=== PATIENT | female | born 1995 | race Caucasian/White ===

== ENCOUNTER → 2021-11-24 11:33 | Outpatient (ROUT) | payer BC, OTHER, SELFPAY | PROVIDERS: Visit Provider Nurse Practitioner Obstetrics & Gynecology | DX: Z34.90 Encounter for supervision of normal pregnancy, unspecified, unspecified trimester (principal); Z36.85 Encounter for antenatal screening for Streptococcus B; Z3A.36 36 weeks gestation of pregnancy | CPT/HCPCS: 87081 ==

== ENCOUNTER 2021-12-28 15:02 | Inpatient (IN) | payer BC, OTHER, MEDICAID, SELFPAY ==
[2021-12-28] MEDS: LACTATED RINGERS 1,000 ML 100 ML IV ×2 (16:15→17:44)
[2021-12-28 16:21] LABS: COVID19 -Nasal RAPID Negative (Negative)
[2021-12-28 16:55] LABS: Add Manual Diff / Slide Review NO; Basophils Absolute Auto 0 /uL (0-100); Basophils Percent Auto 0.3 % (0-2); Eosinophils Absolute Auto 100 /uL (0-450); Eosinophils Percent Auto 0.7 % (2-4); Hematocrit 38.1 % (36-46); Hemoglobin 12.7 g/dL (12.0-16.0); Lymphocytes Absolute Auto 2100 /uL (1100-4500); Lymphocytes Percent Auto 13.3 % (25-40); Mean Corpuscular HGB Conc 33.5 % (30-36); Mean Corpuscular Hemoglobin 27.2 PG (26-34); Mean Corpuscular Volume 81.3 fL (80-100); Monocytes Absolute Auto 900 /uL (0-900); Monocytes Percent Auto 5.9 % (3-14); Neutrophils Absolute Auto 12600 /uL (1500-7000); Neutrophils Percent Auto 79.8 % (50-75); Platelet Count 297 X10^3/uL (150-400); Red Blood Cell Count 4.68 X10^6/uL (4.0-5.2); Red Cell Distribution Width 14.7 % (11.6-14.8); White Blood Cell Count 15.8 X10^3/uL (4.5-11.0)
[2021-12-28 17:02] LABS: Aspartate Aminotransferase 58 IU/L (14-36); BUN Creatinine Ratio 11.3 (6-22); Blood Urea Nitrogen 7 mg/dL (7-17); Estimated Glomerular Filt Rate > 60 mL/min (>60); Uric Acid 4.9 mg/dL (2.5-6.2)
--- NOTE | 2021-12-28 17:10 | P.HPOB_ITS ---
OB HPI Date/Time Date of admission: 12/28/21 Date Patient Seen: 12/28/21 Time Patient Seen: 15:00 History of Present Condition Chief complaint: : 1 Para: 0 Estimated Date of Delivery: 12/17/21 Estimated Gestational Age (weeks): 41.4 Narrative: Cecelia Ochoa is a 26 year old female @ [id number] by early ultrasound who presents for labor evaluation. Contractions started around 0800 this morning and have increased in intensity and frequency throughout the day. She has not had any vaginal bleeding or loss of fluid. She has been feeling good movement. She was seen in clinic at 1415 at which time her cervical exam was 5 cm/80%/-2. She was having to breathe through contractions and was recommended to be admitted. She has had an uncomplicated course of care with the exception of blood pressures trending up in the third trimester (130s/80s). Her blood pressure in the clinic today was 143/89. She arrives with her mother and partner, Neo. She desires an epidural but would like to wait until her contractions become more intense. VS: BP 131/84, HR 111 bpm, T 36.8 C History of Present care: good care, initiated at week # (7), number of visits (11) and pounds weight gain (58) Dating criteria: based on 1st trimester US only Ultrasounds: normal 1st trimester US and normal mid trimester US Obstetrical complications: none Medical complications: none Preadmission Labs Blood type: A (+) positive -: Antibody screen: negative, GBS status: negative, HBsAG: negative, HIV: negative and RPR/VDLR: negative -: Chlamydia screen: not detected and Gonorrhea screen: not detected -: Rubella: not immune and Varicella: immune HCT: 37.5 HCAB: negative PAP: Normal 1 hr GTT: 105 Evaluation Evaluation Baseline heart rate: 150 Variability: Moderate (11-25) Monitor Decelerations: Variable Contraction Frequency (minutes): 3 Status: Category ll Dilation (cm): 5 Effacement (%): 80 Dilation: >/=5 cm Effacement: >/=80% station: -2 [facility] Medical History (Updated 12/28/21 @ 17:46 by Jocelyn Dill CNM) Anxiety Depression Oligomenorrhea Family History (Updated 12/28/21 @ 17:46 by Jocelyn Dill CNM) Mother Hypertension Depression Social History (Updated 12/28/21 @ 17:48 by Jocelyn Dill CNM) marital status: unmarried,living together household members: significant other lives independently: Yes occupational status: employed Smoking Status: Former smoker alcohol intake: former Meds Home Medications and Allergies Allergies Allergy/AdvReac Type Severity Reaction Status Date / Time No Known Drug Allergies Allergy Unverified 12/28/21 17:52 Review of Systems Review of Systems ROS: Yes All systems reviewed with the patient and are negative except as otherwise documented OB Exam Resp Effort & Inspection: normal respiratory effort Auscultation: clear to auscultation bilaterally Presentation: vertex Objective Labs Result Diagrams: 12/28/21 16:15 12/28/21 16:15 Labs: Laboratory Results - last 24 hr 12/28/21 12/28/21 12/28/21 15:36 16:15 16:15 WBC Cancelled 15.8 H RBC Cancelled 4.68 Hgb Cancelled 12.7 Hct Cancelled 38.1 MCV Cancelled 81.3 MCH Cancelled 27.2 MCHC Cancelled 33.5 RDW Cancelled 14.7 Plt Count Cancelled 297 Neut % (Auto) Cancelled 79.8 H Lymph % (Auto) Cancelled 13.3 L Phillips % (Auto) Cancelled 5.9 Eos % (Auto) Cancelled 0.7 L Baso % (Auto) Cancelled 0.3 Neut # (Auto) Cancelled 89629 H Lymph # (Auto) Cancelled 2100 Phillips # (Auto) Cancelled 900 Eos # (Auto) Cancelled 100 Baso # (Auto) Cancelled 0 BUN Creatinine Estimated GFR BUN/Creatinine Ratio Uric Acid AST SARS-CoV-2 (PCR) Negative 12/28/21 16:15 WBC RBC Hgb Hct MCV MCH MCHC RDW Plt Count Neut % (Auto) Lymph % (Auto) Phillips % (Auto) Eos % (Auto) Baso % (Auto) Neut # (Auto) Lymph # (Auto) Phillips # (Auto) Eos # (Auto) Baso # (Auto) BUN 7 Creatinine 0.62 Estimated GFR > 60 BUN/Creatinine Ratio 11.3 Uric Acid 4.9 AST 58 H SARS-CoV-2 (PCR) Assessment and Plan Assessment and Plan Assessment and Plan narrative: Assessment: [place] at 41.4wks Active labor Category II FHR No indication for GBS prophylaxis Elevated blood pressure without diagnosis of gestational hypertension Plan: Routine orders with preeclampsia panel Epidural for pain management when requested Labor support PRN Reassess in 4 hours or sooner, PRN
--- NOTE | 2021-12-28 18:23 | PM.OBPNLAB ---
Date/Time Date Patient Seen: 12/28/21 Time Patient Seen: 16:45 Pain Control Comments: CNM called to room at 1632 for: 1627, prolonged deceleration to 75 bpm noted lasting approximately five minutes. During this time RN's repositioned patient to left side lying without resolution and Dr. Anand (provider on the unit) was called to the room. The patient was then repositioned to hands and knees and started on O2. Vaginal exam was performed by Dr. Anand at that time and she was 5 cm/80%/-2. Deceleration resolved with hands and knees. CNM arrived just following resolution of deceleration. FHR returned to a baseline of 140 bpm with moderate variability but inconsistent tracing. At 1712, second deceleration to 60 bpm, not prolonged, was noted and at 1715 FSE was placed without ROM. Pelvic Exam Dilation (cm): 5 Effacement (%): 80 station: -2 Comments: performed by Dr. Anand Contractions Pitocin rate (mU/min): 0 Contraction frequency (min): 3 Contraction duration (min): 1 Status status: Category ll Heart Rate Baseline: 160 Monitor Accelerations: Absent Monitor Decelerations: Absent Monitor Variability: Moderate Comments: following FSE placement Assessment and Plan Assessment: active labor Comments: Will continue to monitor closely. Reassess in 2-4 hours or sooner, PRN.
[2021-12-28 18:27] VITALS: BP 137/82
--- NOTE | 2021-12-28 19:16 | PM.AN.REGBLK ---
Regional Block Pre-procedure Attending OB provider: Jocelyn Dill PMH/ROS narrative: term labor, no complications ASA Class: II Labs: Hct 38.1 % (36-46) 12/28/21 16:15 Hct Cancelled 12/28/21 16:15 Plt Count 297 X10^3/uL (150-400) 12/28/21 16:15 Plt Count Cancelled 12/28/21 16:15 Medications: Current Medications Generic Name Dose Route Start Last Admin Trade Name Freq PRN Reason Stop Dose Admin Calcium Carbonate 1,000 mg 12/28/21 17:07 Calcium Carbonate 500 Mg Tab PO Q2HR PRN Dyspepsia Carboprost Tromethamine 250 mcg 12/28/21 17:07 Carboprost 250 Mcg/Ml Ampul IM Q90M PRN Bleeding Fentanyl 100 mcg 12/28/21 17:07 Fentanyl 100 Mcg/2 Ml Inj IV Q1H PRN Pain, Severe (7-10) Lactated Ringer's 1,000 mls @ 100 mls/hr 12/28/21 17:15 12/28/21 17:44 Lactated Ringers IV 100 mls/hr CONT CHIQUITA Administration Oxytocin/Lactated Ringer's 30 unit in 500 mls @ 200 mls/hr 12/28/21 17:07 Oxytocin Premix IV CONT PRN Bleeding Protocol Tranexamic Acid 1,000 mg/ 100 mls @ 200 mls/hr 12/28/21 17:07 Sodium Chloride IV NOW PRN Bleeding Oxytocin/Lactated Ringer's 30 unit in 500 mls @ 3 mls/hr 12/28/21 17:15 Oxytocin Premix IV TITRATE CHIQUITA Protocol 3 MILLIUNIT/MIN Methylergonovine Maleate 0.2 mg 12/28/21 17:07 Methylergonovine 0.2 Mg Tablet PO Q6HR PRN Heavy Bleeding Methylergonovine Maleate 0.2 mg 12/28/21 17:07 Methylergonovine 0.2 Mg/Ml Vial IM NOW PRN Bleeding Misoprostol 800 mcg 12/28/21 17:07 Misoprostol 200 Mcg Tablet MD NOW PRN Bleeding Misoprostol 1,000 mcg 12/28/21 17:07 Misoprostol 200 Mcg Tablet MD NOW PRN Bleeding Misoprostol 400 mcg 12/28/21 17:07 Misoprostol 200 Mcg Tablet SL NOW PRN Bleeding Naloxone HCl 0.2 mg 12/28/21 17:07 Naloxone 0.4 Mg/Ml Vial IV Q2MIN PRN Opiate Reversal Ondansetron HCl 4 mg 12/28/21 17:07 Ondansetron 4 Mg/2 Ml Inj IV Q4HR PRN Nausea And Vomiting Oxytocin 10 unit 12/28/21 17:07 Oxytocin 10 Unit/Ml Vial IM NOW PRN Bleeding Allergies: Allergies Allergy/AdvReac Type Severity Reaction Status Date / Time No Known Drug Allergies Allergy Unverified 12/28/21 17:52 Procedure Insertion date: 12/28/21 Insertion time: 19:30 Prep/Local: betadine x3 and 1% lidocaine Interspace: L3-4 Patient position: sitting Needle: 18 gauge Hustead Loss of resistance with: saline BRENDA at (cm): 6 Catheter placed at SKIN (cm): 12 Catheter in SPACE (cm): 6 Insertion: No CSF, No Blood, No Paresthesia with insertion, No Paresthesia with injection and No Test dose reaction Initial Medications TEST DOSE time: 19:33 TEST DOSE: 1.5% lidocaine with epinephrine 1:200k (mL): 3 BOLUS DOSE time: 19:50 BOLUS DOSE (mL): 5 BOLUS DOSE med: other (infusate) Infusion INFUSION: 0.125% bupivacaine and with fentanyl 2 mcg/mL Initial rate (mL/hr): 6 Subsequent interventions: To OR, lidocaine 2%, 10mL Post-procedure Anesthesia time START: 19:23 Anesthesia time END: 21:36 Post-procedure Anesthesia Assessment: Yes CV function: HR/BP stable, Yes Resp function: RR/sat/airway adequate, Yes Mental status appropriate and No Anesthesia complications
--- NOTE | 2021-12-28 21:00 | P.PNOB_ITS ---
Date/Time Date Patient Seen: 12/28/21 Time Patient Seen: 20:15 Pain Control Pain control: epidural Pelvic Exam Dilation (cm): 6 Effacement (%): 80 station: -2 Amniotic membrane status: Leaking Contractions Contractions on admission: regular Monitor mode: External Pitocin rate (mU/min): 0 Contraction frequency (min): 3 Status status: Category ll Heart Rate Baseline: 135 Comments: prolonged deceleration lasting 7 minutes with stephanie to 60's. Intrauterine resuscitation: O2, IVFB, side to side then hands and knees. Terbutaline was ordered but FHR recovered prior to administration so it was held. Assessment and Plan Assessment: active labor and other ( intolerance of labor) Plan: Comments: was consulted for primary . Dr. Whittaker and supervisor parking lot notified to call in OR crew. Dr. Oswald, head housekeeper was already on unit and was notified.
--- NOTE | 2021-12-28 21:18 | P.OP.PRE_ITS ---
Pre-operative Note COVID-19 COVID-19 status: Negative Result date/Date tested (Pos, Neg/Pending): 12/28/21 Criteria for continued procedure: Deterioration of the patient's condition or overall health Interval Note History & Physical reviewed/Exam performed by Physician: Yes Changes to H&P: No H&P completed within 30 days and has changed as indicated here:: No changes to maternal history and physical. heart rate pattern category 2, nonreassuring remote from delivery. C- section recommended and patient consented to for delivery.
--- NOTE | 2021-12-28 21:20 | P.CONS_ITS ---
History of Present Illness Consult details Date Patient Seen: 12/28/21 Time Patient Seen: 08:50 Chief complaint: Reason for consult: intolerance of labor, Cat 2 EFM, remote from delivery Requesting provider: Vonda Castellano Narrative: Consult from Jocelyn Dill CNM for primary C section for intolerance of labor 26 year old female @ [id number] by early ultrasound who was admitted to [facility] in apparent labor, after presenting to the office with uncomfortable contractions office cervical exam 5 cm/80%. She had no rupture membranes and no vaginal bleeding. She had been feeling good movement. Her care has been uncomplicated except note of trending up BPs 130s/80s in 3rd trimester. BP in the clinic today was 143/89 but she reportedly was uncomfortable, breathing with contractions. Initial BP's in [facility] where than normal. Now with patient anxious with heart rate decelerations and consenting for , she has had some mildly elevated BP's again. Preeclamptic labs have been sent which showed a mildly elevated AST, normal p latelets. Urine protein creatinine ratio is pending off the Hagan. Patient was admitted in labor. She received an epidural for anesthesia. She progressed from 5 cm to 6 cm. heart rate had prolonged deceleration lasting 7 minutes with stephanie to 60's.? Intrauterine resuscitation: O2, IVFB, s bandar to side then hands and knees wit recovery of FHts. FHR with subsequent decreased variability and tachycardia with recovery phase, now return to baseline. FHR has demonstrated some intermittent late decelerations and episodic repeat severe decelerations. Meds Home Medications and Allergies Allergies Allergy/AdvReac Type Severity Reaction Status Date / Time No Known Drug Allergies Allergy Unverified 12/28/21 17:52 Exam Vital Signs (past 8 hours): - 12/28/21 18:27 Blood Pressure 137/82 Objective Labs Result Diagrams: 12/28/21 16:15 12/28/21 16:15 Labs: Laboratory Results - last 24 hr 12/28/21 12/28/21 12/28/21 15:36 16:15 16:15 WBC Cancelled RBC Cancelled Hgb Cancelled Hct Cancelled MCV Cancelled MCH Cancelled MCHC Cancelled RDW Cancelled Plt Count Cancelled Neut % (Auto) Cancelled Lymph % (Auto) Cancelled [place] % (Auto) Cancelled Eos % (Auto) Cancelled Baso % (Auto) Cancelled Neut # (Auto) Cancelled Lymph # (Auto) Cancelled [place] # (Auto) Cancelled Eos # (Auto) Cancelled Baso # (Auto) Cancelled BUN Creatinine Estimated GFR BUN/Creatinine Ratio Uric Acid AST SARS-CoV-2 (PCR) Negative Blood Type A Positive Antibody Screen Negative 12/28/21 12/28/21 16:15 16:15 WBC 15.8 H RBC 4.68 Hgb 12.7 Hct 38.1 MCV 81.3 MCH 27.2 MCHC 33.5 RDW 14.7 Plt Count 297 Neut % (Auto) 79.8 H Lymph % (Auto) 13.3 L [place] % (Auto) 5.9 Eos % (Auto) 0.7 L Baso % (Auto) 0.3 Neut # (Auto) 04043 H Lymph # (Auto) 2100 [place] # (Auto) 900 Eos # (Auto) 100 Baso # (Auto) 0 BUN 7 Creatinine 0.62 Estimated GFR > 60 BUN/Creatinine Ratio 11.3 Uric Acid 4.9 AST 58 H SARS-CoV-2 (PCR) Blood Type Antibody Screen [facility] Medical History Anxiety Depression Oligomenorrhea Family History (Updated 12/28/21 @ 17:46 by Jocelyn Dill CNM) Mother Hypertension Depression Social History marital status: unmarried,living together household members: significant other lives independently: Yes occupational status: employed Tobacco & Substance Use Smoking Status: Former smoker alcohol intake: former Assessment & Plan Assessment & Plan narrative: at 6 cm with significant category to heart rate pattern, remote from delivery. I met with the patient and discussed that I agree with the recommendation for section for delivery since baby's heart rate is having significant decelerations and she is not close to a vaginal delivery, recommended expedited delivery with section. The patient agreed to section. I discussed the procedure. I discussed small risk of bleeding, infection, injury to adjacent organs including bowel, bladder and ureters. I discussed small risk of injury to the baby. She confirmed that if she did have heavy bleeding that was life threatening and was not a week to discuss, that she would desire a blood transfusion if felt to be warranted. Verbal and written consent obtained for the . Will observe patient BP's after delivery and await urine/protein creatinine ratio. Patient has had no preeclamptic symptoms. Phone call to me for consult at 8:34 p.m with information given to me, I agreed with and advised Manda Holden CNM and to go ahead and call in OR crew for urgent . Pt seen and consent signed at 0855. Pt with epidural in place. Hagan catheter has been placed in SCDs are on. Or crew arrived, set up and about to bring pt to OR. COVID-19 COVID-19 status: Negative Result date/Date tested (Pos, Neg/Pending): 12/28/21 Time Spent With Patient Critical Care time: I spent a total of [] minutes of critical care time on this patient's care today; this time is exclusive of procedural time.
[2021-12-28 21:42] LABS: Protein (Total) Urine Random 16 mg/dL (0-12); Protein Creatinine Ratio Urine 0.13 GRAM/24H
[2021-12-28] MEDS: CEFAZOLIN 2 GM IN 0.9 % NACL 100 ML IV (21:43)
[2021-12-28] MEDS: AZITHROMYCIN 500 MG in DEXTROSE 5% IN WATER 250 ML 250 MG IV (21:49)
--- NOTE | 2021-12-28 22:02 | SUR.OPER ---
Supine on Padded OR bed, head on pillow, safety belt at thigh, arms secured on padded arm boards at <90 degrees abduction. Bump under right buttock. Legs uncrossed with pillow under knees, gel pad to heels, tape over blanket to lower legs. Gel pad placed between patients posterior upper leg and urinary catheter tubing.
--- NOTE | 2021-12-28 22:12 | SUR.OPER ---
Viable baby girl delivered at 2205. Placenta and cord blood tubes X2 given to L&D RN.
[2021-12-28] MEDS: ACETAMINOPHEN IV 1,000 MG/100 ML VIAL 400 MG IV (22:19)
[2021-12-28 22:40] VITALS: BP 120/74; PULSE 93; RESP 16; O2SAT 100
--- NOTE | 2021-12-28 23:09 | PM.PROC.1 ---
Procedures Date/Time Date of procedure: 12/28/21 Time of procedure: 22:05 General Procedure description: Commissary Assistant Documentation I assisted the OB information technology internship in the section for this patient. My responsibilities included retracting and suctioning, providing fundal pressure during delivery and following with suture during closure. Please see the OB's note for details of the surgery.
[2021-12-28 23:30] VITALS: BP 117/69; PULSE 91; RESP 15; TEMP 36.4; O2SAT 100
[2021-12-28 23:35] VITALS: BP 124/71; PULSE 87; RESP 16; O2SAT 100
[2021-12-28 23:45] VITALS: BP 115/71; PULSE 88; RESP 16; O2SAT 100
--- NOTE | 2021-12-28 23:45 | P.OP_ITS ---
Operative Date/Time/Diagnoses Date of procedure: 12/28/21 Time of procedure: 22:30 Pre-op diagnosis: 41 week , intolerance of labor Post-op diagnosis: same Procedure & Clinicians Procedure: Primary lower transverse section Same procedure as scheduled: Yes Indications: 41 week , intolerance of labor in the active phase. Surgeon: Vonda Castellano Net Sql Developer: Jocelyn Dill Anesthesia Type: Epidural Operative Notes Findings: Double body cord over shoulders. Thick meconium fluid. Baby girl delivered with Apgars of 8 and 9. Normal uterus and ovaries Closure Type: primary Specimen(s): other (Cord blood) Estimated Blood Loss (mL): 500 Blood products transfused: none Procedure in detail: IV fluids: 800 ml crystalloid Urine output: 200 ml Description of procedure: She was transferred from the center to the operating room. She had an epidural for labor and her epidural was bolused. Hagan catheter had previously been placed in the birthing center. She was placed in the supine position and was prepped and draped in routine sterile fashion. The anesthesia level was tested and noted to be adequate. A Pfannenstiel skin incision was made in the lower abdomen and carried down to the level of the fascia. The fascia was incised in the midline and was bluntly extended transversely. The superior and inferior edges of the fascia were elevated and dissected off the rectus muscles with sharp and blunt dissection. The muscles were bluntly split in the midline. The parietal peritoneum was elevated, incised and extended bluntly. The bladder blade was placed. The visceral peritoneum was elevated off the lower uterus, incised and the bladder flap was bluntly created. The bladder blade retractor was placed. A transverse incision was made in the lower uterus and the incision was extended transversely with blunt dissection. Thick meconium fluid was noted. There was umbilical cord loops visible lying over the level of the baby's neck. The head was mildly wedged in the pelvis, was elevated to the uterine incision and delivered through the incision with some minimal fundal pressure. Infant was in the OP position. Anterior shoulder delivered gradually with fundal pressure. After delivery of the anterior shoulder, the posterior shoulder was somewhat tight and did not deliver. body rotated to chest up, and then attempt to deliver the arm that had been anterior, but snug fit in uterus and arm not delivered. Infant rotated back and with fundal pressure and continued gradual traction, posterior arm did now deliver. 's body then delivered without difficulty. Infant had an initial minimal cry but then no further cry and had poor tone. Cord was thus clamped and cut and the infant was handed off to the casting machine operator who was present for delivery. A segment of cord was clamped and cut, and cord gases were obtained, but not sent since infant's subsequent Apgars were 8 and 9. Routine cord blood was obtained for blood typing specimen. The placenta was m anually removed. It appeared intact with a normal three-vessel cord. The uterus was exteriorized out of the uterine incision. The uterus was swept clean of clots and much adherent membranes. On inspection of the uterine incision, there was a transverse extension on her right side exposing, extending superficially just past what appeared to be a branch of a uterine vessel, which was not interrupted, but superficially the myometrium extended past it. On palpation no pulsation was noted so it may be a vein verses branch of the uterine artery by appearance. The uterus was closed in 2 layers with 0 Vicryl. With starting closure of the 1st layer, with anchoring the angle, this suture was passed around the vessel to ligate it. The 1st uterine layer was then closed in running locking continuous fashion followed by a 2nd layer placed in a vertical imbricating type fashion. Hemostasis was noted along the uterine incision. The tubes and ovaries were inspected and noted to be normal. Posterior to the uterus was suctioned of some blood and fluid. The uterus was placed back into the maternal abdomen. The paracolic gutters were inspected and wiped of some minimal blood and fluid. The anterior cul-de-sac was inspected and some clot was removed. The uterine incision was re- inspected and good hemostasis was noted. The pelvis was irrigated. Repeat inspection showed some bleeding along the right bladder flap edge. The bladder flap peritoneum was reapproximated with 3-0 Vicryl, with compressing the area of light bleeding and hemostasis obtained. Repeat inspection of the abdomen reveal continued hemostasis. The abdomen was closed. The muscles were reapproximated with 2 interrupted sutures of 0 Vicryl. The fascia was closed with running continuous suture of 0 Vicryl. The skin was closed with a subcuticular suture of 4-0 Monocryl. Steri-Strips and sterile Aquacel dressing was placed. She tolerated the procedure well and went to the recovery room in stable condition. Complications: none Post-operative Condition: stable Disposition: PACU Plan for aftercare: transferred to floor for routine post care
[2021-12-28] MEDS: KETOROLAC 30 MG/ML VIAL IV (23:49)
[2021-12-28 23:50] VITALS: BP 113/66; PULSE 87; RESP 15; O2SAT 100
--- NOTE | 2021-12-29 00:05 | SUR.PHASEI ---
Pt in recovery from [id number], VSS, denied any distress, and ready to transfer to room. Report given to receiving RN. Pt transferred to room with this RN assistance bedside handoff complete including fundus check. Transfer of care now complete.
[2021-12-29] MEDS: ACETAMINOPHEN 325 MG TABLET 650 MG PO ×2 (02:49→19:08)
[2021-12-29] MEDS: KETOROLAC 30 MG/ML VIAL IV (06:26)
[2021-12-29] MEDS: DOCUSATE 100 MG CAPSULE 200 MG PO (09:07)
[2021-12-29 13:51] LABS: Add Manual Diff / Slide Review NO; Basophils Absolute Auto 0 /uL (0-100); Basophils Percent Auto 0.3 % (0-2); Eosinophils Absolute Auto 100 /uL (0-450); Eosinophils Percent Auto 0.7 % (2-4); Hemoglobin 10.8 g/dL (12.0-16.0); Lymphocytes Absolute Auto 1800 /uL (1100-4500); Lymphocytes Percent Auto 11.9 % (25-40); Mean Corpuscular HGB Conc 33.7 % (30-36); Mean Corpuscular Hemoglobin 27.4 PG (26-34); Mean Corpuscular Volume 81.4 fL (80-100); Monocytes Absolute Auto 1200 /uL (0-900); Monocytes Percent Auto 7.8 % (3-14); Neutrophils Absolute Auto 12100 /uL (1500-7000); Neutrophils Percent Auto 79.3 % (50-75); Platelet Count 249 X10^3/uL (150-400); Red Blood Cell Count 3.93 X10^6/uL (4.0-5.2); Red Cell Distribution Width 15.1 % (11.6-14.8); White Blood Cell Count 15.2 X10^3/uL (4.5-11.0)
--- NOTE | 2021-12-29 18:08 | P.PNOB_ITS ---
Subjective - OB Subjective Patient comments: no complaints, pain well controlled and tolerating diet baby status: doing well and nursing well feeding status: exclusively breast feeding Narrative: Patient fatigued, otherwise she reports doing well. Hagan still in place. Date Patient Seen: 12/29/21 Time Patient Seen: 08:20 Exam Vital Signs (past 8 hours): Oxygen Delivery Method Room Air Temp Narrative Exam Narrative: General: ?Well-appearing female Abdomen: ?Soft, nontender, nondistended. ?Dressing dry. Fundus @U, firm, nontender Extremities: ?Trace pedal edema Objective Labs Result Diagrams: 12/29/21 13:48 12/28/21 16:15 Labs: Laboratory Results - last 24 hr 12/28/21 12/29/21 21:24 13:48 WBC 15.2 H RBC 3.93 L Hgb 10.8 L Hct 32.0 L MCV 81.4 MCH 27.4 MCHC 33.7 RDW 15.1 H Plt Count 249 Neut % (Auto) 79.3 H Lymph % (Auto) 11.9 L Gaines % (Auto) 7.8 Eos % (Auto) 0.7 L Baso % (Auto) 0.3 Neut # (Auto) 18033 H Lymph # (Auto) 1800 Gaines # (Auto) 1200 H Eos # (Auto) 100 Baso # (Auto) 0 U Random Total Protein 16 H Urine Creatinine 119.0 Protein/Creatinin Ratio 0.13 Assessment & Plan Plan day: 1 plan OB: routine postop care Comments: Discuss Hagan to be discontinued later that morning, early afternoon and would then observe for urination. Since my visit Hagan has been discontinued and patient voided without difficulty. Increase ambulation today. Urine protein/creatinine ratio 0.13. Her BP's have been normal since delivery. No signs of preeclampsia and doubt gestational hypertension, BP was only elevated when she was uncomfortable with contractions and anxious prior to the . I reviewed findings at the , baby was in OP position, discussed. Discussed loops of cord over the baby's neck/shoulder upon entry into the uterus, the apparent cause of the severe deceleration since preoperatively. Per questions, reassured her nothing seen to prevent her from carrying another preg tania. Choice with next would be trial of labor after versus repeat and her provider would review risks and benefits of each with the future . Time Spent With Patient Time: Total time spent is greater than 50% in coordination of care (as documented) at patient's floor/unit and/or counseling patient: Time with patient: less than 15 minutes
[2021-12-29] MEDS: OXYCODONE IR 5 MG TABLET PO (19:08)
[2021-12-30] MEDS: ACETAMINOPHEN 325 MG TABLET 650 MG PO ×3 (01:37→17:18)
[2021-12-30] MEDS: OXYCODONE IR 10 MG TABLET PO ×2 (01:41→10:56)
[2021-12-30] MEDS: DOCUSATE 100 MG CAPSULE 200 MG PO (10:56)
--- NOTE | 2021-12-30 11:08 | PM.DS.1 ---
History of Present Illness History of Present Illness Date Patient Seen: 12/30/21 Time Patient Seen: 10:00 Chief complaint: MATERNITY Narrative: 26 year old female @ [id number] by early ultrasound admitted to [facility] in labor, after presenting to the office with uncomfortable contractions office cervical exam 5 cm/80%.? She had no rupture membranes and no vaginal bleeding.? She had been feeling good movement. Her care has been uncomplicated except note of trending up BPs 130s/80s in 3rd trimester.? BP in the clinic the day of admission was 143/89 but she reportedly was uncomfortable, breathing with contractions.? Initial BP's on presentation in [facility] were then normal.?Preeclamptic labs have been sent which showed a mildly elevated AST, normal platelets.? Urine protein creatinine ratio was normal ? Discharge Providers Provider Date of admission: 12/28/21 15:02 Discharge Date: 12/30/21 Consults: 12/28/21 23:52 Consult to [facility] Routine Comment: Discharge provider: Vonda Castellano MD Summary Hospital Course Discharge Diagnosis: ? Hospital Course: She was admitted in labor.? She received an epidural for anesthesia.? She progressed from 5 cm to 6 cm.? heart rate then had prolonged deceleration lasting 7 minutes with stephanie to 60's.? Intrauterine resuscitation: O2, IVFB, side to side then hands and knees wit recovery of FHts. FHR pattern with subsequent decreased variability and tachycardia with recovery phase after the deceleration but then returned to normal basleine, moderate variability.? However FHR continued to have some intermitten decelerations, late decelerations and episodic repeat severe decelerations. Since she was remote from delivery, being a nulliparous patient, section was recommended due to intolerance to labor. She underwent primary section without complications. Baby girl delivered with Apgars of 8 and 9. Weight 6#6 oz, 2908gm. There were loops of cord noted over baby's neck and shoulder upon entry for . Baby was also noted to be in the OP position. Patient has had a normal postoperative course, meeting postoperative parameters. She is passing flatus today and is feeling well. Incisional discomfort is controlled with the oxycodone. She is ready for discharge and is being discharged on postoperative day 2. Awaiting results of baby's bilirubin to see if baby ready for discharge or needs to stay an additional day. Baby otherwise has done well. If baby stays in mother will stay as a boarder in the room. Status at Discharge Cognitive/behavioral status at discharge: oriented Functional status at discharge: independent ambulation Overall status at discharge: patient is progressing back to baseline Time Spent with Patient Time spent: Less than 30 minutes Exam Vital Signs (past 8 hours): Oxygen Delivery Method Room Air Vital signs: Temp 97.4F BP 105/60 Pulse 90 RR 14 Narrative Exam Narrative: General: ?Well-appearing female Abdomen: ?Soft, nondistended, nontender, except expected mild tenderness near the dressing. Dressing C/D/I. No erythema above the dressing. ?Fundus@umbilicus, firm, nontender Extremities: ?Trace pedal edema Objective Labs Result Diagrams: 12/29/21 13:48 12/28/21 16:15 Labs: Laboratory Results - last 24 hr 12/29/21 13:48 WBC 15.2 H RBC 3.93 L Hgb 10.8 L Hct 32.0 L MCV 81.4 MCH 27.4 MCHC 33.7 RDW 15.1 H Plt Count 249 Neut % (Auto) 79.3 H Lymph % (Auto) 11.9 L [place] % (Auto) 7.8 Eos % (Auto) 0.7 L Baso % (Auto) 0.3 Neut # (Auto) 16767 H Lymph # (Auto) 1800 [place] # (Auto) 1200 H Eos # (Auto) 100 Baso # (Auto) 0 PFSH Medical History Anxiety Depression Oligomenorrhea Family History (Updated 12/28/21 @ 17:46 by Jocelyn Dill CNM) Mother Hypertension Depression Social History (Updated 12/28/21 @ 17:48 by Jocelyn Dill CNM) marital status: unmarried,living together household members: significant other lives independently: Yes occupational status: employed Smoking Status: Former smoker alcohol intake: former Discharge Assessment & Plan Assessment and Plan Assessment: Postoperative day 2, status post primary section for intolerance of labor in the active phase, with loops of cord noted over the neck and shoulders at time of . Doing well postoperatively. Ready for discharge. Plan of Treatment: Discharge home. Follow up in 1 week for removal of Aquacel dressing and incision check. Discharge Plan Discharge Plan Patient Disposition: Home Provider Discharge Comment: s/p primary C section for intolerance of labor Discharge orders & Medications Prescriptions: New acetaminophen 325 mg Tablet 650 mg PO Q6H PRN (Reason: Fever/Mild Pain (1-3)) Qty: 20 0RF docusate sodium 100 mg Capsule 200 mg PO DAILY Qty: 20 0RF ibuprofen 600 mg tablet 600 mg PO Q6H PRN (Reason: pain) Qty: 60 0RF oxycodone 5 mg tablet See Rx Instructions .ROUTE .COMPLEX PRN (Reason: pain) Qty: 30 0RF Rx Instructions: 1 to 2 tabs by mouth every 4-6 hours as needed for pain Continued Daily tablet See Rx Instructions .ROUTE .COMPLEX Rx Instructions: 1 tablet PO daily Follow up/Referrals: Vonda Castellano MD [Physician] - 1 Week (appt in 1 week for dressing removal) Discharge Health Status Multidrug resistant organism: No MDRO Diet/Activity/Treatments Diet: Regular Activity: No heavy lifting. Nothing in the vagina for 6 weeks, including o tampons, no intercourse Skin/Wound/Dressing Care Report to your healthcare provider any signs of infection, such as:: chills, fever, increased pain and unusual redness Dressing: Leave dressing on. May shower with the dressing on. Visit Report/Discharge Packet Instructions: DI for , DI for Depression
[2021-12-30] MEDS: ONDANSETRON 4 MG ODT SL (12:38)
[2021-12-30] MEDS: OXYCODONE IR 5 MG TABLET PO (17:19)
[2021-12-30 19:40] VITALS: BP 106/61; PULSE 76; RESP 18; TEMP 36.3
== END 2021-12-30 20:35 | disposition home or self-care (01) | DRG 786 ==
PROVIDERS: Obstetrics & Gynecology; Admitting Provider Nurse Practitioner Obstetrics & Gynecology; Referring Provider Nurse Practitioner Obstetrics & Gynecology; Visit Provider Nurse Practitioner Obstetrics & Gynecology
PROC: 10D00Z1 Extraction of Products of Conception, Low, Open Approach (ICD-10-PCS; CPT 59514; principal; 2021-12-28 21:45)
DX: O48.0 Post-term pregnancy (principal); O99.42 Diseases of the circulatory system complicating childbirth; R03.0 Elevated blood-pressure reading, without diagnosis of hypertension; O76 Abnormality in fetal heart rate and rhythm complicating labor and delivery; Z3A.41 41 weeks gestation of pregnancy; Z37.0 Single live birth; O32.3XX0 Maternal care for face, brow and chin presentation, not applicable or unspecified; O77.0 Labor and delivery complicated by meconium in amniotic fluid; O69.81X0 Labor and delivery complicated by cord around neck, without compression, not applicable or unspecified; Z20.822 Contact with and (suspected) exposure to COVID-19
CPT/HCPCS: 01967; 01968; 36415; 59050; 59514; 82570; 84156; 84450; 84550; 85025; 86850; 86900; 86901; 87635; C9803; G0379; J0131; J0690; J1885; J2274; J2590; J3010